=== PATIENT | male | born 1985 | race African-American/Black ===

== ENCOUNTER 2020-06-08 13:23 | Emergency (ER) | payer MEDICAID ==
[~2020-06-08] VITALS: Ht 170.2 cm; Wt 77.0 kg
[2020-06-08 15:19] LABS: BASOPHILS % 0.5 % (0.0-2.0); EOSINOPHILS % 0.3 % (0.0-5.0); HEMATOCRIT. 39.4 % (42.0-52.0); HEMOGLOBIN. 13.6 g/dL (14.0-18.0); LYMPHOCYTES % 29.8 % (20.0-50.0); MEAN CORPUSCULAR HEMOGLOBIN 32.5 pg (28.0-32.0); MEAN CORPUSCULAR VOLUME 94.3 fL (80.0-94.0); MEAN PLATELET VOLUME 9.1 fl (7.4-10.4); MONOCYTES % 9.8 % (2.0-8.0); NEUTROPHILS % 59.6 % (40.0-76.0); PLATELET 207 x1000/uL (130-400); RED BLOOD CELL COUNT 4.18 mill/uL (4.7-6.1); RED CELL DISTRIBUTION WIDTH 13.6 % (11.6-14.6)
[2020-06-08 15:29] LABS: CHLORIDE 100 mEq/L (98-107)
[2020-06-08] MEDS ORDERED: POTASSIUM CHLORIDE 20MEQ TABLET SR PO NR (15:45)
[2020-06-08 17:30] VITALS: BP 136/85
== END 2020-06-08 17:56 | disposition home or self-care (01) ==
LOC: ER 13:23
DX: R42 Dizziness and giddiness (principal); R07.89 Other chest pain; R03.0 Elevated blood-pressure reading, without diagnosis of hypertension; F17.210 Nicotine dependence, cigarettes, uncomplicated; Z71.6 Tobacco abuse counseling
CPT/HCPCS: 36415; 71045; 80053; 84484; 85025; 93005; 99285; 99406; Z7610